=== PATIENT | female | born 1985 | race American Indian/Alaskan Native ===

== ENCOUNTER 2016-07-18 21:57 | Emergency (ER) | payer SELFPAY ==
[2016-07-18 22:44] VITALS: BP 114/67
[2016-07-18] MEDS ORDERED: ATARAX PO ONE (23:35)
[2016-07-18] MEDS ORDERED: DELTASONE PO ONE (23:35)
[2016-07-18] MEDS ORDERED: PEPCID PO ONE (23:35)
--- NOTE | 2016-07-18 23:53 | Emergency Department Report ---
ED Rash HPI - HPI Chief Complaint: Skin Rash Stated Complaint: SKIN IRRITATION Time Seen by Provider: 07/18/16 23:34 Duration: 1 Day Location: Head, Neck, Chest, Back, Abdomen, Upper Extremities, Lower Extremities , Other Suspected Cause: Unknown Rash Symptoms: Yes Itching, No Facial Swelling, No Tongue/Oral Swelling, No Breathing Difficulties, No Choking Sensation, No Wheezing/Dyspnea, No Peeling, No Blistering, No Fever, No Lightheaded, No Malaise, No Myalgias Severity: moderate Other History: 30-year-old -[place] female comes in today for complaint of itchy itchiness and rash all over her body since yesterday. Patient reports that she has been taking Benadryl by mouth as well as using Benadryl topical. Without any resolution. Patient denies any new foods or new detergent new perfumes new soaps. ED Review of Systems ROS: Stated complaint: SKIN IRRITATION Other details as noted in HPI Constitutional: denies: chills, fever Eyes: denies: eye pain, eye discharge, vision change ENT: denies: ear pain, throat pain Respiratory: no symptoms reported Cardiovascular: denies: chest pain, palpitations Endocrine: no symptoms reported Gastrointestinal: denies: abdominal pain, nausea, diarrhea Genitourinary: denies: urgency, dysuria, discharge Musculoskeletal: denies: back pain, joint swelling, arthralgia Skin: rash, lesions Neurological: denies: headache, weakness, paresthesias Psychiatric: denies: anxiety, depression ED Past Medical Hx - Past Medical History Previous Medical History?: No - Surgical History Past Surgical History?: No Additional Surgical History: - Social History Smoking Status: Current Every Day Smoker Substance Use Type: None - Medications Home Medications: Home Medications Medication Instructions Recorded Confirmed Last Taken Type Fluticasone [Flonase] 2 spray NS QDAY #1 bottle 05/03/15 Unknown Rx Ibuprofen [Motrin] 600 mg PO Q8H PRN #40 tablet 05/03/15 Unknown Rx Promethazine /Codeine 5 ml PO Q6H PRN #150 ml 05/03/15 Unknown Rx [Phenergan/Codeine 6.25-10 mg/5 ml] Azithromycin [Zithromax Z-SUSAN] 250 mg PO DAILY #6 tab 12/19/15 Unknown Rx Loratadine [Claritin] 10 mg PO DAILY #30 tablet 12/19/15 Unknown Rx guaiFENesin/DEXTROMETHORPHAN 10 ml PO Q4HR PRN #118 ml 12/19/15 Unknown Rx [Tussin Dm Cough Syrup] Cetirizine HCl [ZyrTEC] 10 mg PO QDAY #30 capsule 07/19/16 Unknown Rx Famotidine [Pepcid] 40 mg PO QHS #10 tablet 07/19/16 Unknown Rx Prednisone [predniSONE 10 mg 10 mg PO .TAPER #1 tab.ds.pk 07/19/16 Unknown Rx (6-Day Pack, 21 Tabs)] hydrOXYzine HCL [Atarax] 25 mg PO Q6HR PRN #20 tablet 07/19/16 Unknown Rx Rash Exam - Exam General: Vital signs noted. No distress. Alert and acting appropriately. HEENT: No Periorbital Edema, No Conjuctival Injection, No Chemosis, No Perioral Edema, No Tongue Edema, No Uvular Edema, No Drooling Lungs: Yes Good Air Exchange, No Cough, No Labored Respirations, No Retractions , No Use of Accessory Muscles, No Other Abnormal Lung Sounds Heart: Yes Regular, No Murmur Skin: Yes Urticarial Rash Other: Positive: Abdomen Normal, Neurologic Normal, Musculoskeletal Normal ED Course Vital Signs 07/18/16 22:42 Temperature 98 F Pulse Rate 70 Respiratory 18 Rate Blood Pressure 114/67 O2 Sat by Pulse 100 Oximetry ED Medical Decision Making - Medical Decision Making Patient has been evaluated with his provider fast track. Patient was given Atarax and prednisone and Pepcid to help with her urticaria. Discussed patient out of a place her on Atarax and Medrol Dosepak Pepcid and Zyrtec's and for her to follow up with an retail planning manager as soon as possible. Critical care attestation.: If time is entered above; I have spent that time in minutes in the direct care of this critically ill patient, excluding procedure time. ED Disposition Clinical Impression: Urticaria Disposition: DISCHARGED TO HOME OR SELFCARE Is pt being admited?: No Does the pt Need Aspirin: No Condition: Stable Instructions: Urticaria (ED) Additional Instructions: Please take the medications as prescribed. His pharynx were free to follow-up with the primary care provider as well as I referred to several allergists to see what you can actually be allergic to. Please return to the emergency room if symptoms persist this does not improve. Prescriptions: Famotidine [Pepcid] 40 mg PO QHS #10 tablet Cetirizine HCl [ZyrTEC] 10 mg PO QDAY #30 capsule hydrOXYzine HCL [Atarax] 25 mg PO Q6HR PRN #20 tablet PRN Reason: Itching Prednisone [predniSONE 10 mg (6-Day Pack, 21 Tabs)] 10 mg PO .TAPER #1 tab.ds.pk Referrals: PRIMARY CARE, [Primary Care Provider] - 3-5 Days [facility] [Provider Group] - 3-5 Days [facility] [Provider Group] - 3-5 Days [facility] [Provider Group] - 3-5 Days Forms: Work/School Release Form(ED)
== END 2016-07-19 01:13 | disposition home or self-care (01) ==
LOC: ED 21:57
DX: L50.9 Urticaria, unspecified (principal); F17.200 Nicotine dependence, unspecified, uncomplicated
CPT/HCPCS: 99282; J7512

== ENCOUNTER 2020-04-21 15:01 | Outpatient (CLI) | payer OTHER | END 2020-04-21 15:02 | disposition home or self-care (01) | LOC: LAB 15:01 | PROVIDERS: ATTEND Orthopaedic Surgery | DX: M10.9 Gout, unspecified (principal); M79.643 Pain in unspecified hand | CPT/HCPCS: 36415; 84550; 85652; 86038; 86431 ==

== ENCOUNTER 2020-06-18 08:15 | Day surgery (SDC) | payer OTHER ==
[~2020-06-18 08:15] MED LIST: ACETAMINOPHEN 500 MG TAB PO SCH; LACTATED RINGERS 1,000 ML IV SCH; MIDAZOLAM 2 MG/2 ML INJ IV NR; ceFAZolin/Water 2 GM/20 ML 2 GM/20 ML SYRINGE IV NR
[2020-06-18] MEDS ORDERED: ONDANSETRON 4 MG/2 ML INJ IV PRN (11:38)
[2020-06-18] MEDS ORDERED: HYDROcodone/ACETAMINOPHEN 5-325 MG TAB PO PRN (11:38)
[2020-06-18] MEDS ORDERED: fentaNYL 100 MCG/2 ML INJ IV PRN (11:38)
--- NOTE | 2020-06-18 11:41 | Anesthesia Consultation ---
Anesthesia Consult and Med Hx Date of service: 06/18/20 - Airway Anesthetic Teeth Evaluation: Good ROM Head & Neck: Adequate Mental/Hyoid Distance: Adequate Mallampati Class: Class II Intubation Access Assessment: Probably Good - Pre-Operative Health Status ASA Pre-Surgery Classification: ASA2 Proposed Anesthetic Plan: General - Pulmonary Hx Smoking: Yes (1/2 PPD) Hx Respiratory Symptoms: No - Cardiovascular System Hx Hypertension: No (previously on antihypertensives for raynauds, self d/c'd medications) Hx Heart Attack/AMI: No - Central Nervous System CVA: No Hx Back Pain: Yes - Endocrine Hx Renal Disease: No Hx Liver Disease: No Hx Insulin Dependent Diabetes: No Hx Non-Insulin Dependent Diabetes: No Hx Thyroid Disease: No - Other Systems Hx Obesity: No - Additional Comments Anesthesia Medical History Comments: No hx anesthetic complications.
--- NOTE | 2020-06-18 11:42 | Anesthesia Day of Surgery ---
Anesthesia Day of Surgery - Day of Surgery Patient Examined: Yes Patient H&P Reviewed: Yes Patient is NPO: Yes
[2020-06-18] MEDS ORDERED: BUPIVACAINE/PF (0.5%) 5 MG/1 ML 10 ML VIAL INFILTRATI ONE (12:35)
[2020-06-18] MEDS ORDERED: fentaNYL 100 MCG/2 ML INJ ONE (12:44)
[2020-06-18] MEDS ORDERED: propofoL 200 MG/20 ML VIAL IV ONE (12:44)
[2020-06-18] MEDS ORDERED: BUPIVACAINE/PF (0.25%) 2.5 MG/ML 10 ML VIAL INFILTRATI ONE (13:31)
--- NOTE | 2020-06-18 14:07 | Procedure Note ---
Date of procedure: 06/18/20 Pre-op diagnosis: Right carpal tunnel syndrome Post-op diagnosis: same Procedure: Right endoscopic carpal tunnel release Procedure The patient was brought to the OR placed in the OR table in supine position following induction and intubation anesthesia the patient's right upper extremity was prepped and draped in the usual sterile manner a timeout procedure was done to identify the patient and the correct operative site next the arm was exsanguinated followed by inflation of the pneumatic tourniquet to 250 mmHg a volar incision was made at the distal wrist crease this is taken down through skin and subcutaneous using loupe magnification the superficial flexor sheath was identified next the carpal canal was entered using dilators andthe arthroscope was inserted the patient was noted to have some tightness at the carpal canal and the transverse carpal transverse carpal ligament was identified with the arthroscope in line with the fourth metacarpal the knife blade assembly was elevated the ligament was released from distal to proximal care was taken to release the ligament as completely as possible a second look was done and it appeared that the ligament was completely released at this point The wound was irrigated and was closed in a standard routine fashion. Dressings were applied the patient tolerated the procedure there were no complications she was sent to postanesthesia recovery in stable condition Anesthesia: GETA Surgeon: VIDA DANIELS (Patricia Perry, 1st assist) Estimated blood loss: minimal Pathology: none Condition: stable Disposition: PACU
[2020-06-18] MEDS ORDERED: dexAMETHasone 20 MG/5 ML VIAL ONE (14:11)
[2020-06-18] MEDS ORDERED: LIDOCAINE MPF (2%) 20 MG/1 ML VIAL 5 ML ONE (14:11)
[2020-06-18] MEDS ORDERED: ONDANSETRON 4 MG/2 ML INJ ONE (14:11)
[2020-06-18 15:17] VITALS: BP 128/76
--- NOTE | 2020-06-18 15:28 | Post Anesthesia Evaluation ---
- Post Anesthesia Evaluation Patient Participated: Yes Airway Patent: Yes Stable Respiratory Function: Yes Nausea/Vomiting: No Temp > 96.8F: Yes Pain Manageable: Yes Adequeate Hydration: Yes Anesthesia Complications: No
== END 2020-06-18 15:25 | disposition home or self-care (01) ==
LOC: OR 08:15
PROVIDERS: ATTEND Orthopaedic Surgery
DX: G56.01 Carpal tunnel syndrome, right upper limb (principal); F17.210 Nicotine dependence, cigarettes, uncomplicated; M19.90 Unspecified osteoarthritis, unspecified site; K21.9 Gastro-esophageal reflux disease without esophagitis; Z79.899 Other long term (current) drug therapy; Z98.891 History of uterine scar from previous surgery; Z72.89 Other problems related to lifestyle; Z98.890 Other specified postprocedural states
CPT/HCPCS: 29848; J0690; J1100; J2250; J2405; J2704; J3010; J7120

== ENCOUNTER 2021-06-28 11:28 | Outpatient (CLI) | payer OTHER ==
--- NOTE | 2021-06-28 14:22 | XRay Report ---
RIGHT HAND 3 VIEW(S) INDICATION / CLINICAL INFORMATION: BILATERAL HAND PAIN COMPARISON: None available. FINDINGS: BONES / JOINT(S): No acute fracture or subluxation. No significant arthritis. SOFT TISSUES: No significant abnormality. ADDITIONAL FINDINGS: None. Signer Name: Mayur Pryor MD Signed: 06/28/2021 2:17 PM Workstation Name: [email or web address]
--- NOTE | 2021-06-28 14:35 | XRay Report ---
BILATERAL WRIST 6 VIEW(S) INDICATION / CLINICAL INFORMATION: BILATERAL WRIST PAIN COMPARISON: None available. FINDINGS: BONES / JOINT(S): No acute fracture or subluxation. No significant arthritis. SOFT TISSUES: No significant abnormality. ADDITIONAL FINDINGS: None. Signer Name: Mayur Pryor MD Signed: 06/28/2021 2:31 PM Workstation Name: [email or web address]
== END 2021-06-28 11:29 | disposition home or self-care (01) ==
LOC: XRAY 11:28
PROVIDERS: ATTEND Internal Medicine
DX: Z02.71 Encounter for disability determination (principal); M25.532 Pain in left wrist; M25.531 Pain in right wrist; M79.642 Pain in left hand; M79.641 Pain in right hand